=== PATIENT | male | born 1965 | race African-American/Black ===

== ENCOUNTER 2022-03-16 21:50 | Inpatient (IN) | payer MEDICAID ==
[~2022-03-16] VITALS: Ht 175.3 cm; Wt 79.8 kg
[2022-03-16 22:49] VITALS: BP 116/76
[2022-03-16 23:00] VITALS: BP 119/74
[2022-03-17] MEDS ORDERED: ACETAMINOPHEN 325MG TABLET PO PRN ×2
[2022-03-17] MEDS ORDERED: BISACODYL 5MG TABLET PO PRN
[2022-03-17] MEDS ORDERED: HYDRALAZINE 20MG/ML VIAL IV PRN
[2022-03-17] MEDS ORDERED: NA PHOS,M-B/NA PHOS,DI-BA ENEMA 118ML PR PRN
[2022-03-17] MEDS ORDERED: ONDANSETRON HCL 4MG TABLET PO PRN
[2022-03-17] MEDS ORDERED: HYDRALAZINE 10 MG in SODIUM CHLORIDE 0.9% 49.5 ML IV PRN (00:45)
[2022-03-17] MEDS ORDERED: THROAT LOZENGES-BENZOCAINE/MENTH/CETYLPYRD CL LOZENGES MM PRN (00:45)
[2022-03-17] MEDS ORDERED: GUAIFENESIN-DM 200MG-20MG/10ML UDC PO PRN (00:45)
[2022-03-17] MEDS ORDERED: FLOMAX PO (05:55)
[2022-03-17] MEDS ORDERED: PROSCAR PO (06:00)
[2022-03-17] MEDS: PANTOPRAZOLE 40MG DR TABLET PO SCH (06:10)
[2022-03-17 07:13] LABS: HEMATOCRIT. 32.6 % (42.0-52.0); HEMOGLOBIN. 10.7 g/dL (14.0-18.0); MEAN CORPUSCULAR HEMOGLOBIN 28.6 pg (28.0-32.0); MEAN CORPUSCULAR VOLUME 87.3 fL (80.0-94.0); MEAN PLATELET VOLUME 6.7 fl (7.4-10.4); PLATELET 253 x1000/uL (130-400); RED BLOOD CELL COUNT 3.73 mill/uL (4.7-6.1); RED CELL DISTRIBUTION WIDTH 15.6 % (11.6-14.6)
[2022-03-17 07:31] LABS: CHLORIDE 105 mEq/L (98-107)
[2022-03-17 08:00] VITALS: BP 138/75
[2022-03-17] MEDS ORDERED: NON FORMULARY PATIENT HOME MED XX SCH ×4 (09:00)
[2022-03-17] MEDS ORDERED: HEPARIN 5000 UNITS/ML VIAL SUBCUT SCH (09:00)
[2022-03-17] MEDS: MULTIVITAMINS,THER W-MINERALS TABLET PO SCH (09:45)
[2022-03-17] MEDS: DOCUSATE SODIUM 100MG CAPSULE PO SCH ×2 (09:45→18:04)
[2022-03-17] MEDS: DEXAMETHASONE 2MG TABLET PO SCH ×2 (09:45→18:04)
[2022-03-17] MEDS: POLYETHYLENE GLYCOL 3350 (17GM) 1 DOSE PACK PO SCH (09:46)
[2022-03-17] MEDS: FLUDROCORTISONE ACETATE 0.1MG TABLET PO SCH ×2 (09:46→18:04)
[2022-03-17] MEDS: LEVETIRACETAM 500MG TABLET PO SCH ×2 (09:46→20:46)
[2022-03-17 12:27] LABS: PLATELET ESTIMATE NORMAL
[2022-03-17] MEDS ORDERED: LACTULOSE 20G/30ML UDC PO NR (13:00)
[2022-03-17 20:00] VITALS: BP 111/71
[2022-03-17] MEDS: SENNOSIDES/DOCUSATE SOD 8.6/50MG TABLET PO SCH (20:45)
[2022-03-17] MEDS: TAMSULOSIN HCL 0.4MG SR CAPSULE PO SCH (20:46)
[2022-03-17 23:35] LABS: CLARITY URINE TURBID (CLEAR); COLOR URINE YELLOW (YELLOW); KETONES URINE NEGATIVE (NEGATIVE); LEUKOCYTE ESTERASE URINE 3+ (NEGATIVE); NITRITE URINE NEGATIVE (NEGATIVE); OCCULT BLOOD URINE NEGATIVE (NEGATIVE); PH URINE >=9.0 (4.5-8.0); PROTEIN URINE TRACE (NEGATIVE); SPECIFIC GRAVITY URINE 1.019 (1.005-1.030); UROBILINOGEN URINE 0.2 E.U./dL (0.2-1.0)
[2022-03-18] MEDS: PANTOPRAZOLE 40MG DR TABLET PO SCH (06:26)
[2022-03-18] MEDS ORDERED: CEFTRIAXONE 1 G PREMIX 50 ML IV SCH (06:45)
[2022-03-18 06:46] LABS: HEMATOCRIT 31.4 % (42.0-52.0); HEMOGLOBIN 10.3 g/dL (14.0-18.0); MEAN CORPUSCULAR HEMOGLOBIN 28.7 pg (28.0-32.0); MEAN CORPUSCULAR VOLUME 87.8 fL (80.0-94.0); PLATELET 217 x1000/uL (130-400); RED BLOOD CELL COUNT 3.58 mill/uL (4.7-6.1); RED CELL DISTRIBUTION WIDTH 16.4 % (11.6-14.6)
[2022-03-18 06:49] LABS: CHLORIDE 105 mEq/L (98-107)
[2022-03-18 08:00] VITALS: BP 128/68
[2022-03-18] MEDS ORDERED: CEFTRIAXONE 1,000 MG in DEXTROSE 5% WATER 50 ML IV SCH ×2 (08:00→12:00)
[2022-03-18] MEDS: DOCUSATE SODIUM 100MG CAPSULE PO SCH ×2 (10:00→17:00)
[2022-03-18] MEDS: POLYETHYLENE GLYCOL 3350 (17GM) 1 DOSE PACK PO SCH (10:00)
[2022-03-18] MEDS: DEXAMETHASONE 2MG TABLET PO SCH ×2 (10:01→17:40)
[2022-03-18] MEDS: LEVETIRACETAM 500MG TABLET PO SCH ×2 (10:02→20:17)
[2022-03-18] MEDS: MULTIVITAMINS,THER W-MINERALS TABLET PO SCH (10:02)
[2022-03-18] MEDS: FLUDROCORTISONE ACETATE 0.1MG TABLET PO SCH ×2 (10:02→17:40)
[2022-03-18] MEDS: CEPHALEXIN 250MG CAPSULE PO SCH ×3 (13:55→23:40)
[2022-03-18 20:00] VITALS: BP 111/58
[2022-03-18] MEDS: TAMSULOSIN HCL 0.4MG SR CAPSULE PO SCH (20:17)
[2022-03-18] MEDS: SENNOSIDES/DOCUSATE SOD 8.6/50MG TABLET PO SCH (20:18)
[2022-03-19] MEDS: PANTOPRAZOLE 40MG DR TABLET PO SCH (06:00)
[2022-03-19] MEDS: CEPHALEXIN 250MG CAPSULE PO SCH ×4 (06:00→23:38)
[2022-03-19 07:02] LABS: CHLORIDE 105 mEq/L (98-107)
[2022-03-19 07:03] LABS: HEMATOCRIT 31.2 % (42.0-52.0); HEMOGLOBIN 10.1 g/dL (14.0-18.0); MEAN CORPUSCULAR HEMOGLOBIN 28.6 pg (28.0-32.0); MEAN CORPUSCULAR VOLUME 88.1 fL (80.0-94.0); PLATELET 201 x1000/uL (130-400); RED BLOOD CELL COUNT 3.54 mill/uL (4.7-6.1); RED CELL DISTRIBUTION WIDTH 16.9 % (11.6-14.6)
[2022-03-19 08:00] VITALS: BP 118/72
[2022-03-19] MEDS: DOCUSATE SODIUM 100MG CAPSULE PO SCH ×2 (09:00→17:00)
[2022-03-19] MEDS: POLYETHYLENE GLYCOL 3350 (17GM) 1 DOSE PACK PO SCH (09:00)
[2022-03-19] MEDS: LEVETIRACETAM 500MG TABLET PO SCH ×2 (09:20→20:29)
[2022-03-19] MEDS: MULTIVITAMINS,THER W-MINERALS TABLET PO SCH (09:20)
[2022-03-19] MEDS: DEXAMETHASONE 2MG TABLET PO SCH ×2 (09:20→18:20)
[2022-03-19] MEDS: FLUDROCORTISONE ACETATE 0.1MG TABLET PO SCH ×2 (09:20→18:20)
[2022-03-19 20:00] VITALS: BP 109/76
[2022-03-19] MEDS: SENNOSIDES/DOCUSATE SOD 8.6/50MG TABLET PO SCH (20:29)
[2022-03-19] MEDS: TAMSULOSIN HCL 0.4MG SR CAPSULE PO SCH (20:29)
[2022-03-20 06:00] LABS: HEMATOCRIT 30.5 % (42.0-52.0); HEMOGLOBIN 9.9 g/dL (14.0-18.0); MEAN CORPUSCULAR HEMOGLOBIN 28.9 pg (28.0-32.0); MEAN CORPUSCULAR VOLUME 88.6 fL (80.0-94.0); PLATELET 193 x1000/uL (130-400); RED BLOOD CELL COUNT 3.44 mill/uL (4.7-6.1); RED CELL DISTRIBUTION WIDTH 16.7 % (11.6-14.6)
[2022-03-20] MEDS: CEPHALEXIN 250MG CAPSULE PO SCH ×4 (06:10→23:02)
[2022-03-20] MEDS: FAMOTIDINE 20MG TABLET PO SCH ×2 (06:10→16:31)
[2022-03-20 06:27] LABS: CHLORIDE 106 mEq/L (98-107)
[2022-03-20 08:00] VITALS: BP 121/80
[2022-03-20] MEDS: POLYETHYLENE GLYCOL 3350 (17GM) 1 DOSE PACK PO SCH (09:24)
[2022-03-20] MEDS: MULTIVITAMINS,THER W-MINERALS TABLET PO SCH (09:24)
[2022-03-20] MEDS: LEVETIRACETAM 500MG TABLET PO SCH ×2 (09:25→23:00)
[2022-03-20] MEDS: DOCUSATE SODIUM 100MG CAPSULE PO SCH ×2 (09:25→16:29)
[2022-03-20] MEDS: DEXAMETHASONE 2MG TABLET PO SCH ×2 (09:25→16:30)
[2022-03-20] MEDS: FLUDROCORTISONE ACETATE 0.1MG TABLET PO SCH ×2 (09:27→16:30)
[2022-03-20 20:18] VITALS: BP 116/61
[2022-03-20] MEDS: SENNOSIDES/DOCUSATE SOD 8.6/50MG TABLET PO SCH (23:00)
[2022-03-20] MEDS: TAMSULOSIN HCL 0.4MG SR CAPSULE PO SCH (23:02)
[2022-03-21] MEDS: CEPHALEXIN 250MG CAPSULE PO SCH ×4 (06:55→21:50)
[2022-03-21] MEDS: FAMOTIDINE 20MG TABLET PO SCH ×2 (06:55→16:49)
[2022-03-21 08:00] VITALS: BP 114/64
[2022-03-21] MEDS: DOCUSATE SODIUM 100MG CAPSULE PO SCH ×2 (09:00→16:49)
[2022-03-21] MEDS: POLYETHYLENE GLYCOL 3350 (17GM) 1 DOSE PACK PO SCH (09:00)
[2022-03-21] MEDS: DEXAMETHASONE 2MG TABLET PO SCH ×2 (09:08→16:49)
[2022-03-21] MEDS: FLUDROCORTISONE ACETATE 0.1MG TABLET PO SCH ×2 (09:08→16:49)
[2022-03-21] MEDS: LEVETIRACETAM 500MG TABLET PO SCH ×2 (09:09→21:48)
[2022-03-21] MEDS: MULTIVITAMINS,THER W-MINERALS TABLET PO SCH (09:09)
[2022-03-21 20:00] VITALS: BP 108/63
[2022-03-21] MEDS: SENNOSIDES/DOCUSATE SOD 8.6/50MG TABLET PO SCH (21:47)
[2022-03-21] MEDS: TAMSULOSIN HCL 0.4MG SR CAPSULE PO SCH (21:48)
[2022-03-22] MEDS: CEPHALEXIN 250MG CAPSULE PO SCH ×3 (05:16→18:07)
[2022-03-22] MEDS: FAMOTIDINE 20MG TABLET PO SCH ×2 (05:16→18:07)
[2022-03-22 08:00] VITALS: BP 136/80
[2022-03-22] MEDS: DOCUSATE SODIUM 100MG CAPSULE PO SCH ×3 (09:00→17:00)
[2022-03-22] MEDS: POLYETHYLENE GLYCOL 3350 (17GM) 1 DOSE PACK PO SCH (09:00)
[2022-03-22] MEDS: LEVETIRACETAM 500MG TABLET PO SCH ×2 (10:15→21:24)
[2022-03-22] MEDS: DEXAMETHASONE 2MG TABLET PO SCH ×2 (10:15→18:08)
[2022-03-22] MEDS: MULTIVITAMINS,THER W-MINERALS TABLET PO SCH (10:16)
[2022-03-22] MEDS: FLUDROCORTISONE ACETATE 0.1MG TABLET PO SCH ×2 (10:16→18:08)
[2022-03-22 20:00] VITALS: BP 106/57
[2022-03-22] MEDS: TAMSULOSIN HCL 0.4MG SR CAPSULE PO SCH (21:25)
[2022-03-22] MEDS: SENNOSIDES/DOCUSATE SOD 8.6/50MG TABLET PO SCH (21:25)
[2022-03-23] MEDS: CEPHALEXIN 250MG CAPSULE PO SCH ×3 (00:18→12:21)
[2022-03-23] MEDS: FAMOTIDINE 20MG TABLET PO SCH (06:07)
[2022-03-23 08:00] VITALS: BP 122/66
[2022-03-23] MEDS: FLUDROCORTISONE ACETATE 0.1MG TABLET PO SCH (08:42)
[2022-03-23] MEDS: DOCUSATE SODIUM 100MG CAPSULE PO SCH (08:42)
[2022-03-23] MEDS: DEXAMETHASONE 2MG TABLET PO SCH (08:42)
[2022-03-23] MEDS: MULTIVITAMINS,THER W-MINERALS TABLET PO SCH (08:42)
[2022-03-23] MEDS: LEVETIRACETAM 500MG TABLET PO SCH (08:43)
[2022-03-23] MEDS: POLYETHYLENE GLYCOL 3350 (17GM) 1 DOSE PACK PO SCH (08:43)
[2022-03-23 10:25] VITALS: BP 122/66
[2022-03-23] MEDS ORDERED: FAMO-135 PO (11:28)
[2022-03-23] MEDS ORDERED: TAMS-11 PO (11:29)
[2022-03-23] MEDS ORDERED: SENN-293 PO (11:32)
[2022-03-23] MEDS ORDERED: FLOR PO (11:33)
[2022-03-23] MEDS ORDERED: POLY17PO3 PO (11:37)
[2022-03-23] MEDS ORDERED: MULT-230 PO (11:38)
[2022-03-23] MEDS ORDERED: LEVE1000 PO (11:39)
[2022-03-23] MEDS ORDERED: DOCU-138 PO (11:40)
== END 2022-03-23 13:25 | disposition home health service (06) | DRG 41 ==
PROVIDERS: ADMIT Psychiatry & Neurology Neurology; ATTEND Hospitalist
DX: C71.3 Malignant neoplasm of parietal lobe (principal); G93.6 Cerebral edema; E43 Unspecified severe protein-calorie malnutrition; D63.8 Anemia in other chronic diseases classified elsewhere; D72.829 Elevated white blood cell count, unspecified; I10 Essential (primary) hypertension; K59.00 Constipation, unspecified; N40.0 Benign prostatic hyperplasia without lower urinary tract symptoms; N39.0 Urinary tract infection, site not specified; Z86.16 Personal history of COVID-19; Z87.440 Personal history of urinary (tract) infections; Z79.899 Other long term (current) drug therapy; Z68.26 Body mass index [BMI] 26.0-26.9, adult; R53.1 Weakness
CPT/HCPCS: 36415; 80048; 80053; 81003; 85025; 85027; 92523; 93970; 97110; 97112; 97116; 97162; 97166; 97530; 97535; J0696; J1644; J7060; J8540